=== PATIENT | female | born 1950 | race Caucasian/White ===

== ENCOUNTER 2023-02-08 04:22 | Inpatient (IN) | payer MEDICARE ==
[2023-02-08] VITALS (15 sets, daily range): BP systolic 95–142; BP diastolic 56–104
[~2023-02-08] VITALS: Ht 160 cm; Wt 60.2 kg
[~2023-02-08 04:22] MED LIST: CEPH500 PO; CODACE30 PO; DIAZ5 PO; HYDR1TAB94 PO; LEVE500 PO; NAPR500 PO
[2023-02-08 04:37] LABS: BASOPHILS ABSOLUTE AUTO 0.03 K/mm3 (0.00-0.23); BASOPHILS PERCENT AUTO 0 % (0-2); EOSINOPHILS ABSOLUTE AUTO 0.11 K/mm3 (0.00-0.68); EOSINOPHILS PERCENT AUTO 2 % (0-6); Hematocrit 37.5 % (33.0-51.0); Hemoglobin 11.7 g/dL (11.5-16.0); IMMATURE GRAN ABSOLUTE AUTO 0.07 K/mm3 (0.00-0.10); IMMATURE GRAN PERCENT AUTO 1 % (0-1); LYMPHOCYTES ABSOLUTE AUTO 2.51 K/mm3 (0.84-5.20); LYMPHOCYTES PERCENT AUTO 37 % (21-46); MONOCYTES ABSOLUTE AUTO 0.39 K/mm3 (0.16-1.47); MONOCYTES PERCENT AUTO 6 % (4-13); Mean Corpuscular HGB 31.5 pg (26.0-34.0); Mean Corpuscular HGB Conc 31.2 g/dL (31.5-36.5); Mean Corpuscular Volume 101 fL (80-100); Mean Platelet Volume 8.9 fL (9.1-12.4); NEUTROPHILS ABSOLUTE AUTO 3.69 K/mm3 (1.96-9.15); NEUTROPHILS PERCENT AUTO 54 % (41-73); Platelet Count 293 K/mm3 (150-400); RDW Coefficient Variation 13.4 % (11.7-14.2); RDW Standard Deviation 50.4 fL (35.1-46.3); Red Blood Cell Count 3.71 M/mm3 (3.80-5.20)
[2023-02-08 04:55] LABS: Albumin, Blood 3.9 g/dL (3.4-5.0); Albumin/Globulin Ratio 1.4 (0.8-1.8); Bilirubin, Total 0.2 mg/dL (0.1-1.0); Calcium, Blood 8.6 mg/dL (8.5-10.1); Creatinine, Blood 0.78 mg/dL (0.40-1.00); Globulin, Blood 2.8 g/dL (2.2-4.0); Magnesium, Blood 2.2 mg/dL (1.6-2.4); Potassium, Blood 3.9 mmol/L (3.5-5.5); Prolactin 92.5 ng/mL (2.74-19.64); Total Protein, Blood 6.7 g/dL (6.4-8.2)
[2023-02-08 04:56] LABS: Source, Urine Foley catheter
[2023-02-08 05:05] LABS: Bilirubin, Urine Neg (Neg); Blood, Urine Neg (Neg); Glucose Qualitative, Urine Neg (Neg); Ketones, Urine Neg (Neg); Leukocyte Esterase, Urine 1+ (Neg); Nitrite, Urine Pos (Neg); Protein, Urine 1+ (Neg); Urobilinogen, Urine NORM (Normal)
[2023-02-08 05:13] LABS: Appearance, Urine Hazy (Clear); Color, Urine Yellow (P-Yellow)
[2023-02-08 05:18] LABS: Bacteria Many /hpf; Mucus Light (0-Heavy); Red Blood Cells, Urine Not Seen /hpf (0-2); Squamous Epithelial Cells Few /hpf (Few)
[2023-02-08 05:21] LABS: Base Excess Venous -4.5 mmol/L; Bicarbonate Venous 21.2 mmol/L (24.0-30.0); PCO2 Venous 33.9 mmHg (38-42); pH Blood Venous 7.39 (7.34-7.37)
--- NOTE | 2023-02-08 08:17 | NUR ---
ASSUMED CARE PT WAS TRANSFERED FROM ED AND ARRIVED IN ROOM AT 0730. THE PT WAS TRYING TO RAISE HER LEFT ARM ONCE TRANSFERRED AND OPENED HER EYES WHILE GETTING HER POSITIONED IN THE BED. LUNG SEVERINO CLEAR. PUPILS EQUAL AND RESPONSIVE TO LIGHT. WHEN THE PT ARRIVED TO THE ROOM PROPOFOL WAS @55 AND WAS TITRATED DOWN TO 50. RT SAID PLAN WAS TO COME BACK AND TRY A SPONTANEOUS BREATHING TRIAL. PROPOFOL NOW DOWN TO 30. DIXON PATENT AND DRAINING TO GRAVITY. SINUS RHYTHM WITH OCCASIONAL PVCS NOTED ON HEART MONITOR. BP STABLE.
--- NOTE | 2023-02-08 09:28 | NUR ---
VENT SETTINGS WERE ADJUSTED BY RT THIS MORNING TO TRIAL SPONTANEOUS BREATHING. PT CURRENTLY TOLERATING VENT, O2 SAT 100% AND RESPIRATIONS 13. THE PT IS BECOMING MORE RESTLESS. PROPOFOL @20. DR. PARRA VISITED PT THIS MORNING, SAID THAT ONCE PT IS EXTUBATED, IF SHE DOES NOT HAVE SEIZURES FOR 24 HOURS DISCHARGE CAN BE EVALUATED.
--- NOTE | 2023-02-08 10:47 | NUR ---
PT WAS EXTUBATED AT 1042. CURRENTLY 02 SATS 100% ON 2 L N/C. BP 132/83 WITH MAP 99. THE PT IS CURRENTLY SINUS TACH @100 AND CONTINUES TO HAVE OCCASIONAL PVCS. WRIST RESTRAINTS REMOVED. PROPOFOL OFF AT 1039. PT AGITATED, SWATTING AWAY JOSE CARLOS AND THIS STUDENT NURSE.
--- NOTE | 2023-02-08 10:56 | NUR ---
PT IS ALERT BUT NOT FULLY ORIENTED. SHE HAS BEEN TOLD BY THIS STUDENT NURSE AND JOSE CARLOS THAT SHE IS IN THE ICU AND WHY SHE IS IN THE ICU. WHEN YOU ASK THE PT IF SHE KNOWS WHERE SHE IS SHE SAYS NO. PT IS ORIENTED TO SELF, SHE WAS ABLE TO SAY WHEN HER BIRTHDAY IS. THE PT'S BED IS LOWERED AND THE ALARM IS ON. CALL LIGHT IN REACH.
--- NOTE | 2023-02-08 11:09 | NUR ---
MARK WILSON JUST PHONED TO RELAY THAT HE WAS NOT GOING TO DO THE TEST TODAY R/T HIS RADIOLOGIST NOT WANTING IT DONE FOR ELEVATED PROLACTIN, THAT WOULD BE AN OUTPATIENT TEST. I ASKED THAT THE TECH RELAY THAT TO THE DOCTOR AND HE TOLD ME NO. HE SAID THAT HE IS NOT DOING THE TEST BECAUSE HIS DOCTOR SAID NO AND THAT IT WAS MY RESPONSIBILITY TO SHARE THAT INFORMATION. RELAYED TO MY CHARGE NURSE.
--- NOTE | 2023-02-08 11:35 | NUR ---
THE PATIENT IS BECOMING MORE ORIENTED. SHE IS NOW ON ROOM AIR AT 98%. THE PT WAS ABLE TO DRINK WATER HERSELF WITHOUT COUGHING OR SHOWING ANY SIGNS OF ASPIRATION. AFTER TRYING THE WATER SHE WAS ASKING FOR HER AND WANTING TO CALL HIM. THE PATIENT WAS ABLE TO REMEMBER HER , SARAVANAN'S, PHONE NUMBER AND THIS STUDENT NURSE CONFIRMED IT WAS HIM WHEN HE ANSWERED. THE PT IS STILL ON THE PHONE WITH SARAVANAN AND ONCE SHE IS OFF THE PHONE HER DIXON WILL BE D/C'D.
--- NOTE | 2023-02-08 12:00 | NUR ---
PT'S CATHETER WAS REMOVED AT 1150. SHE COMPLAINED OF PAIN WITH REMOVAL, SHE SAID IT FELT LIKE PRESSURE. THIS STUDENT NURSE VERIFIED THAT THE 10 ML OF SALINE WAS FULLY REMOVED PRIOR TO DIXON REMOVAL. THIS STUDENT NURSE ASKED THE PT ABOUT TAKING HER SEIZURE MEDICATION AT HOME. THE PT STATED THAT SHE WASN'T TAKING THE KEPPRA BECAUSE THE PILLS WERE TOO BIG AND SHE COULDN'T CUT THEM. THE PT ALSO EXPRESSED CONCERN OVER WHO WAS GOING TO BE CARING FOR HER SPOUSE, SARAVANAN, WHILE SHE WAS IN THE HOSPITAL. 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 THE PT STATED THEY DON'T HAVE ANYONE ELSE TO HELP HER AT HOME. WITH ALL CARE GIVEN, THE PT IS INDEPENDENT SHE CAN BE. SHE INSISTS ON DOING ALL CARE HERSELF WITH MINIMAL HELP. THIS STUDENT NURSE ORIENTED THE PT ON HOW TO USE THE CALL LIGHT. THE PT'S BED ALARM IS STILL ON JUST IN CASE SHE FORGETS TO USE THE CALL LIGHT TO GET UP.
--- NOTE | 2023-02-08 12:24 | NUR ---
PT REFUSED THE CBG CHECK MULTIPLE TIMES. THIS STUDENT NURSE PROVIDED PATIENT EDUCATION TO WHY IT WAS ORDERED AND THE IMPORTANCE OF IT. SINCE THE PT DOESN'T HAVE ORDERS TO REGULATE INSULIN PER EMAR, THIS STUDENT NURSE WILL NOT PURSUE HAVING THE CBG DONE.
--- NOTE | 2023-02-08 16:18 | NUR ---
PT REQUESTED ASPIRIN INSTEAD OF TYLENOL FOR HEADACHE AND EAR PAIN. DR. PARRA WAS CONTACTED AND SHE PUT AN ORDER IN FOR ASPIRIN. DR. PARRA ALSO STATED THAT THE PT WOULD HAVE A STATUS CHANGE TO MED NO TELE. THE PT GOT UP TO USE THE COMMODE WITH MINIMAL ASSISTANCE. SHE HAD NO OUTPUT. THE PT REFUSED A CBG CHECK. THE PT REQUESTED SOMETHING TO EAT, SHE WAS BROUGHT A JELLO BY THIS STUDENT NURSE. THE PT REQUESTED A [employer] SERVICE TAKE HER HOME WHEN SHE IS DISCHARGED SINCE HER CANNOT DRIVE.
--- NOTE | 2023-02-08 16:42 | NUR ---
DR. PEREZ WAS IN THE PT'S ROOM TALKING TO THE ON THE PT'S HOSPITAL PHONE. THE WENT OVER HIS CONCERNS WITH WHAT WAS GOING TO HAPPEN WHEN THE PT GOT HOME. SINCE THE PT LIKELY CANNOT DRIVE AFTER DISCHARGE THE QUESTION AROSE OF WHO WILL DRIVE TO GET THEIR GROCERIES AND MEET THEIR NEEDS SINCE THE CANNOT DRIVE. THE PATIENT WILL HAVE A TRADE SHOW COORDINATOR ORDER PUT IN.
--- NOTE | 2023-02-08 18:08 | NUR ---
SHIFT SUMMARY JUDI'S MENTATION HAS IMPROVED THROUGHOUT THE SHIFT SINCE BEING EXTUBATED THIS MORNING. AT FIRST SHE WAS ALERT BUT VERY DISORIENTED, NOW SHE IS A/0 X 3. SHE IS ABLE TO MAKE HER NEEDS KNOWN. SHE HAS MADE FREQUENT CALLS TO HER THROUGHOUT THE DAY. THE PATIENT CAN AMBULATE WITH 1 PERSON RANGING FROM MINIMAL TO MODERATE ASSIST. THE PATIENT IS ABLE TO FEED HERSELF AND DOES NOT SHOW ANY SIGNS OF ASPIRATION. THE PLAN IS FOR THE PATIENT TO DISCHARGE TOMORROW LONG SHE IS SEIZURE FREE. THERE IS CONCERN ABOUT WHAT THE PATIENT'S HOME SITUATION WILL LOOK LIKE SHE WON'T BE ABLE TO DRIVE FOR A PERIOD OF TIME. THE PATIENT'S DOES NOT DRIVE. DR. PEREZ IS AWARE OF THIS AND WANTS MACHINE VENEER REPAIRER ON BOARD. WILL CONTINUE TO MONITOR THE PATIENT UNTIL CARE IS TRANSITIONED TO NOC SHIFT.
[2023-02-09 00:15] VITALS: BP 110/71
[2023-02-09 01:15] VITALS: BP 117/72
[2023-02-09 03:30] VITALS: BP 111/74
--- NOTE | 2023-02-09 04:07 | NUR ---
PT ARRIVED ON UNIT AT ABOUT ~0115. COMPLAINED OF HEADACHE BUT WAS ABLE TO FALL ASLEEP QUICKLY. VITALS WNL. 1 PERSON ASSIST TO BATHROOM. SOMEWHAT CONFUSED BUT PLEASANT AND COOPERATIVE WITH CARE. IV IN LAC AND RFA, BOTH SALINE LOCKED. SATTING >90% ON ROOM AIR. FULL LIQUID DIET, TOLERATING WELL. CONTINENT ALTHOUGH PER REPORT FROM ICU NURSE HAS CURRENT UTI. CALLS APPROPRIATELY. BED LOCKED IN LOWEST POSITION. CALL LIGHT LEFT WITHIN REACH.
[2023-02-09 04:54] LABS: BASOPHILS ABSOLUTE AUTO 0.01 K/mm3 (0.00-0.23); BASOPHILS PERCENT AUTO 0 % (0-2); EOSINOPHILS ABSOLUTE AUTO 0.04 K/mm3 (0.00-0.68); EOSINOPHILS PERCENT AUTO 1 % (0-6); Hematocrit 35.4 % (33.0-51.0); Hemoglobin 11.7 g/dL (11.5-16.0); IMMATURE GRAN ABSOLUTE AUTO 0.01 K/mm3 (0.00-0.10); IMMATURE GRAN PERCENT AUTO 0 % (0-1); LYMPHOCYTES ABSOLUTE AUTO 1.56 K/mm3 (0.84-5.20); LYMPHOCYTES PERCENT AUTO 22 % (21-46); MONOCYTES ABSOLUTE AUTO 0.66 K/mm3 (0.16-1.47); MONOCYTES PERCENT AUTO 9 % (4-13); Mean Corpuscular HGB 32.1 pg (26.0-34.0); Mean Corpuscular HGB Conc 33.1 g/dL (31.5-36.5); Mean Corpuscular Volume 97 fL (80-100); NEUTROPHILS ABSOLUTE AUTO 4.79 K/mm3 (1.96-9.15); NEUTROPHILS PERCENT AUTO 68 % (41-73); Platelet Count 259 K/mm3 (150-400); RDW Coefficient Variation 13.4 % (11.7-14.2); RDW Standard Deviation 48.3 fL (35.1-46.3); Red Blood Cell Count 3.64 M/mm3 (3.80-5.20); White Blood Cell Count 7.07 K/mm3 (4.00-11.30)
[2023-02-09 05:25] LABS: Albumin, Blood 3.6 g/dL (3.4-5.0); Albumin/Globulin Ratio 1.3 (0.8-1.8); Bilirubin, Total 0.4 mg/dL (0.1-1.0); Bun/Creatinine Ratio 17.8 (12.0-20.0); Calcium, Blood 8.6 mg/dL (8.5-10.1); Creatinine, Blood 0.67 mg/dL (0.40-1.00); Globulin, Blood 2.8 g/dL (2.2-4.0); Magnesium, Blood 2.1 mg/dL (1.6-2.4); Potassium, Blood 3.5 mmol/L (3.5-5.5); Total Protein, Blood 6.4 g/dL (6.4-8.2)
[2023-02-09 07:28] VITALS: BP 112/62
[2023-02-09] MEDS ORDERED: CEFP200 PO (11:08)
--- NOTE | 2023-02-09 11:31 | NUR ---
Pt. is awake in bed and welcomes my visit. Pt. is pleasant but uncertain what her future prognosis is. Listen with empathy and a calming presence and facilitate a life review. Pt. displayed evidence of awarness, engagement, and interest during the visit. Prayed with Pt. Pt. verbalized gratitude for the spiritual care visit.
--- NOTE | 2023-02-09 14:36 | NUR ---
Patient ready for discharge, plan is to DC home today. Patient will take a taxi to the pharmacy & then go home. Provided education on new medications, pt verbalzied understanding. pt left medical unit at 1400.
== END 2023-02-09 14:00 | disposition home or self-care (01) | DRG 689 ==
LOC: ER 04:22 → MEDS 06:09 → ICUW 06:09 → MEDS 02-09 01:12 → ENPENDDIS 02-09 10:26 → MEDS 02-09 14:00
PROVIDERS: Student in an Organized Health Care Education/Training Program; ADMIT Student in an Organized Health Care Education/Training Program
PROC: 0T9B70Z Drainage of Bladder with Drainage Device, Via Natural or Artificial Opening (ICD-10-PCS; principal; 2023-02-08)
PROC: 5A1935Z Respiratory Ventilation, Less than 24 Consecutive Hours (ICD-10-PCS; 2023-02-08)
DX: N39.0 Urinary tract infection, site not specified (principal); J96.90 Respiratory failure, unspecified, unspecified whether with hypoxia or hypercapnia; R56.9 Unspecified convulsions; Z91.148 Patient's other noncompliance with medication regimen for other reason; B96.20 Unspecified Escherichia coli [E. coli] as the cause of diseases classified elsewhere; G43.909 Migraine, unspecified, not intractable, without status migrainosus; I95.9 Hypotension, unspecified; G89.29 Other chronic pain; Z79.891 Long term (current) use of opiate analgesic; Z86.73 Personal history of transient ischemic attack (TIA), and cerebral infarction without residual deficits; Z90.710 Acquired absence of both cervix and uterus; Z90.722 Acquired absence of ovaries, bilateral; Z87.891 Personal history of nicotine dependence; Z79.2 Long term (current) use of antibiotics; Z79.899 Other long term (current) drug therapy
CPT/HCPCS: 36415; 51702; 70450; 71045; 80053; 81001; 82803; 83735; 84146; 85025; 87077; 87086; 87186; 93005; 93010; 94002; 96365-59; 96375-59; 99285-25; A9270; J0696; J1650; J1953; J2704; J7030; J7050

== ENCOUNTER → 2025-04-16 | Outpatient (CLI) | payer MEDICARE ==
[~2025-04-16] MED LIST changes: +CEFP200 PO
== END ==
LOC: LAB 11:45 → LAB SHORT 11:45
DX: R35.0 Frequency of micturition (principal)
CPT/HCPCS: 87077; 87086; 87186